=== PATIENT | female | born 1970 | race Caucasian/White ===

== ENCOUNTER 2024-03-16 13:06 | Emergency (ER) | payer MEDICARE, MEDICAID ==
[~2024-03-16] VITALS: Ht 165.1 cm; Wt 118.7 kg
[2024-03-16] MEDS ORDERED: AMOX875T10 PO (15:04)
[2024-03-16 15:16] VITALS: BP 173/90; PULSE 70; RESP 16; TEMP 97.1; O2SAT 98
== END 2024-03-16 15:18 | disposition home or self-care (01) ==
LOC: ER 13:06
DX: K04.7 Periapical abscess without sinus (principal); Z88.8 Allergy status to other drugs, medicaments and biological substances; Z79.2 Long term (current) use of antibiotics
CPT/HCPCS: 99283